=== PATIENT | female | born 1940 | race Caucasian/White ===

== ENCOUNTER → 2021-04-04 01:41 | Outpatient (CLI) | payer MEDICARE, SELFPAY ==
[2021-04-04 17:52] LABS: SARS-CoV-2 RNA PCR Positive
== END ==
PROVIDERS: PCP Family Medicine Adolescent Medicine; Visit Provider Family Medicine Adolescent Medicine
DX: U07.1 COVID-19 (principal)
CPT/HCPCS: C9803; U0003; U0005

== ENCOUNTER → 2021-04-20 12:39 | Outpatient (CLI) | payer MEDICARE, SELFPAY ==
--- NOTE | ~2021-04-20 | XR_ITS ---
EXAMINATION: XR chest 2V DATE: 04/20/2021 12:51 INDICATION: Cough. Chest pain. TECHNIQUE: Frontal and lateral views of the chest were obtained. COMPARISON: Chest 2 views 04/12/2011 FINDINGS: There are airspace opacities in the mid and lower lung zones with a peripheral predominance . Right-sided pleural thickening versus small loculated pleural effusion is noted. No pneumothorax. C ardiomegaly is noted. Surgical clips in the right upper quadrant are likely from cholecystectomy. IMPRESSION: 1. Airspace opacities in the mid and lower lung zones with a peripheral predominance, consistent with atelectasis/scarring versus pneumonia. 2. Right-sided pleural thickening versus small loculated pleural effusion. Consider chest CT with int ravenous contrast. 3. Cardiomegaly. Reviewed, dictated and finalized at location A. IMPRESSION: 1. Airspace opacities in the mid and lower lung zones with a peripheral predomi nance, consistent with atelectasis/scarring versus pneumonia. 2. Right-sided pleural thickening versus small loculated pleural effusion. Cons ider chest CT with intravenous contrast. 3. Cardiomegaly.
== END ==
PROVIDERS: PCP Family Medicine Adolescent Medicine; Visit Provider Family Medicine Adolescent Medicine
DX: R05 Cough (principal); R07.9 Chest pain, unspecified; I51.7 Cardiomegaly; R91.8 Other nonspecific abnormal finding of lung field
CPT/HCPCS: 71046

== ENCOUNTER 2021-05-09 14:24 | Emergency (ER) | payer MEDICARE, SELFPAY ==
--- NOTE | ~2021-05-09 | XR_ITS ---
XR hand LT min 3V DATE: 05/09/2021 14:34 INDICATION: Left hand injury TECHNIQUE: 3 views COMPARISON: None FINDINGS: Diffuse osteopenia. There is polyarticular osteoarthritis, involving first carpometacarpal and interphalangeal joints elier earlene, especially the interphalangeal joint of the first digit. No erosive change or chondrocalcinos is. No fracture or dislocation, periosteal reaction or bone destruction is detected. IMPRESSION: Polyarticular osteoarthritis Osteopenia Reviewed, dictated and finalized at location A.
--- NOTE | 2021-05-09 14:33 | ED.UPPEXIN ---
HPI - Extremity Injury (Upper) General Chief Complaint: Extremity Injury, Upper Stated Complaint: lt hand injury Time Seen by Provider: 05/09/21 14:33 Source: patient and RN notes reviewed History of Present Illness HPI narrative: Patient is a 80-year-old female who presents the urgent care with complaints of left hand pain. Patient states that she fell over a tree stump on Tuesday and caught herself with her left hand. Patient states that the swelling has subsided but she is unable to fully move the last 3 digits without severe pain. Patient states that she is ice the hand, elevated and rested. No other acute complaints or injuries. No acute distress noted. Patient aware of the plan of care. Some parts of this dictation were generated by voice recognition software and may contain typographical and/or grammatical inaccuracies. Related Data Home Medications Medication Instructions Recorded Confirmed albuterol sulfate INHALATION 05/09/21 atorvastatin 05/09/21 beclomethasone dipropionate [Qvar INHALATION 05/09/21 RediHaler] benzonatate mg PO 05/09/21 Allergies Allergy/AdvReac Type Severity Reaction Status Date / Time No Known Allergies Allergy Verified 05/09/21 14:41 Review of Systems Review of Systems: CONSTITUTIONAL: Denies fever, chills, or sweats. EYES: Denies visual changes, redness, or discharge. ENT: Denies rhinorrhea, congestion, sore throat, or otalgia. CARDIOVASCULAR: Denies chest pain, palpitations, or edema. RESPIRATORY: Denies cough or dyspnea. GASTROINTESTINAL: Denies abdominal pain, nausea, vomiting, or diarrhea. GENITOURINARY: Denies dysuria or hematuria. SKIN: Denies rash or itching. MUSCULOSKELETAL: Reports of left hand pain and bruising NEUROLOGIC: Denies headache, numbness, or weakness. All other systems reviewed are negative, except as documented in HPI. PMFSH Social History Social History Alcohol intake: current Comments At the time of my signature, I reviewed and agree with the nursing past medical, surgical, social, and family history. There is no relevant family history pertinent to the patient complaint. Exam Narrative: GENERAL: This is a well-nourished, well-developed patient, in no apparent distress. HEAD: normocephalic, atraumatic. EYES: PERRL. Sclera clear/white. Vision is grossly intact. EARS: External ears normal NOSE: External nose normal with no obvious nasal discharge, nares without redness, no rhinorrhea. THROAT: Mucous membranes moist NECK: Neck supple CARDIOVASCULAR: Regular rate and rhythm RESPIRATORY: Clear to auscultation. Breath sounds equal bilaterally. No wheezes, rales, or rhonchi. SKIN: warm, intact with no suspicious lesions or rash, good texture and turgor. NEURO: awake, alert, and oriented to person, place and time. There were no obvious focal neurologic abnormalities. EXTREMITIES: Mild ecchymosis noted to the ulnar aspect of the left hand with mild to moderate swelling to the palmar aspect just distal from the third and fifth digits. Positive strong left radial pulse with capillary refill less than 2 seconds. Range of motion within normal limits with exacerbated pain on making a fist Course Vital Signs Vital signs: Vital Signs Temperature 99.2 F 05/09/21 14:42 Pulse Rate 98 05/09/21 14:42 Respiratory Rate 20 05/09/21 14:42 Blood Pressure 152/80 H 05/09/21 14:42 Pulse Oximetry 96 05/09/21 14:42 Temperature 99.2 F 05/09/21 14:42 Pulse Rate 98 05/09/21 14:42 Respiratory Rate 20 05/09/21 14:42 Blood Pressure 152/80 H 05/09/21 14:42 Pulse Oximetry 96 05/09/21 14:42 Reviewed-patient is informed that they may have pre-hypertension or hypertension based on a blood pressure reading in the department. I recommend the patient call the primary care provider listed on their discharge instructions or a physician of their choice this week to arrange follow-up for further evaluation of possible pre-hypertension or hyperten
[2021-05-09 14:42] VITALS: BP 152/80; PULSE 98; RESP 20; TEMP 37.3; O2SAT 96
== END 2021-05-09 15:28 | disposition home or self-care (01) ==
PROVIDERS: Emergency Provider Nurse Practitioner Family; PCP Family Medicine Adolescent Medicine
DX: M19.042 Primary osteoarthritis, left hand (principal); W01.0XXA Fall on same level from slipping, tripping and stumbling without subsequent striking against object, initial encounter
CPT/HCPCS: 73130; 99213; G0463

== ENCOUNTER → 2021-10-08 11:40 | Outpatient (CLI) | payer MEDICARE, SELFPAY ==
--- NOTE | ~2021-10-08 | XR_ITS ---
XR sacroiliac joints min 3V DATE: 10/08/2021 12:09 INDICATION: Low back pain TECHNIQUE: 6 views COMPARISON: None FINDINGS: Severe degenerative disease at L5-S1. Diffuse osteopenia. The sacroiliac joints and pubic symphysis are intact. No erosive change or ankylosis, fracture or dis location at either sacroiliac joint. IMPRESSION: Osteopenia Intact sacroiliac joints Severe degenerative disc disease at L5-S1 Reviewed, dictated and finalized at Location A. Reviewed, dictated and finalized at location B. [employer]
--- NOTE | ~2021-10-08 | XR_ITS ---
XR lumbar spine 2-3V DATE: 10/08/2021 12:09 INDICATION: Low back pain TECHNIQUE: AP, lateral, coned lateral lumbosacral views COMPARISON: None FINDINGS: There is diffuse osteopenia. Probable old mild compression fracture deformity of L1. There is degenerative change at the apophyseal joints at L4-5 and L5-S1 with associated grade 1 anter olisthesis at L4-5. There is severe degenerative disc disease at L5-S1. There is mild degenerative disc disease at L4-5. No fracture or bone destruction. The included lower thoracic and lumbar pedicles are intact. The sacroiliac joints are normal. Surgical clips, right upper quadrant, consistent with cholecystectomy. IMPRESSION: Osteopenia Probable old mild compression fracture deformity of L1 Grade 1 anterolisthesis at L4-5 due to degenerative change at the apophyseal joints; mild degenerativ e disc disease at L4-5. Severe degenerative disease at L5-S1. Reviewed, dictated and finalized at location B. 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 Severe degenerative disease at L5-S1.
== END ==
PROVIDERS: PCP Physician Assistant; Visit Provider Physician Assistant
DX: M85.88 Other specified disorders of bone density and structure, other site (principal); M51.37 Other intervertebral disc degeneration, lumbosacral region
CPT/HCPCS: 72100; 72202

== ENCOUNTER 2022-04-30 19:03 | Emergency (ER) | payer MEDICARE, SELFPAY ==
[2022-04-30] VITALS (7 sets, daily range): BP systolic 118–157; BP diastolic 66–86; PULSE 73; RESP 20; TEMP 36.2; O2SAT 89–100
--- NOTE | ~2022-04-30 | XR_ITS ---
XR chest 1V portable DATE: 05/01/2022 02:29 INDICATION: Fall. TECHNIQUE: Portable upright AP chest on 05/01/2022 at 0222 hours COMPARISON: 04/30/2022 CT chest FINDINGS: Right lateral third and fourth rib displaced rib fractures are noted with slight underlying pneumothorax. Minimal right lung atelectasis. Cardiomegaly. Aortic calcification and mild tortuosity. No pleural effusion. Osteopenia. Degenerative spurring of the thoracic spine. Status post cholecystectomy. IMPRESSION: Right lateral third and fourth displaced rib fractures with very slight underlying pneumo thorax Mild right lung atelectasis Cardiomegaly Reviewed, dictated and finalized at location A. IMPRESSION: Right lateral third and fourth displaced rib fractures with very sl ight underlying pneumothorax Mild right lung atelectasis Cardiomegaly
--- NOTE | ~2022-04-30 | XR_ITS ---
XR chest 2V DATE: 05/01/2022 12:08 INDICATION: Slight right pneumothorax, right rib fractures, right scapular fracture TECHNIQUE: AP and lateral views COMPARISON: 05/01/2022 portable AP chest FINDINGS: Right scapular and third and fourth rib fractures are again noted. No apparent pneumothorax . The lungs appear clear. No pleural effusion or pneumothorax. Cardiac megaly. Aortic calcification and mild tortuosity. Diffuse osteopenia. Dextro scoliosis and degenerative spurring of the thoracic spine. Status post cholecystectomy. IMPRESSION: Right scapular and displaced third and fourth lateral rib fractures No apparent pneumothorax Reviewed, dictated and finalized at location A.
--- NOTE | ~2022-04-30 | XR_ITS ---
EXAMINATION: XR shoulder RT min 2V DATE: 04/30/2022 19:29 INDICATION: Right shoulder pain post fall TECHNIQUE: AP internally and externally rotated, AP oblique externally rotated and transscapular Y vi ews of the right shoulder were obtained. COMPARISON: 12/24/2011 FINDINGS: Fracture extending transversely across the middle and caudal thirds of the right scapular body. The c audal fragment is displaced anteriorly and superiorly. Displaced third and fourth and likely nondispl aced second and fifth lateral right rib fractures. No other fractures identified. No evident pneumoth orax or pleural effusion the right hemithorax. Normal alignment with mild osteoarthritis at the right glenohumeral and acromioclavicular joints. Severe lower cervical and moderate thoracic spondylosis. IMPRESSION: Displaced fracture of the right scapular body. See lateral sided right rib fractures which are displa luis. No evident associated pneumothorax or pleural effusion. Reviewed, dictated and finalized at location A. IMPRESSION: Displaced fracture of the right scapular body. See lateral sided right rib frac tures which are displaced. No evident associated pneumothorax or pleural effusi on.
--- NOTE | ~2022-04-30 | CT_ITS ---
EXAMINATION: CT diagnostic chest wo con DATE: 04/30/2022 20:12 INDICATION: fall . Right shoulder and back pain. TECHNIQUE: Computed tomography (CT) of the chest was performed without intravenous contrast. Addition al 3D reconstructions utilizing coronal maximum intensity projection (MIP) were performed. Automated exposure control and iterative reconstruction technique were employed. The dose-length product was 12 0.44 mGy-cm. COMPARISON: None FINDINGS: Comminuted fracture of the right scapular body. There are also fractures of the lateral right third a nd fourth ribs with one rib width displacement. There is a tiny right pneumothorax. Subpleural curvil inear atelectasis versus scarring at the right upper and bilateral lower lobes. No pneumonia, pulmona ry edema, pleural effusion or left-sided pneumothorax. Cardiomegaly with right atrial enlargement. No pericardial effusion. Thoracic aorta is normal in caliber. No pathologically enlarged abdominal or p elvic lymphadenopathy. Single diverticulum along the proximal descending colon without adjacent from trace stranding to suggest diverticulitis. Visualized upper abdomen is otherwise unremarkable. Severe thoracic spondylosis with chronic mild anterior wedging at T8 and T9 and more prominent chronic L1 c ompression fracture with up to 40% central vertebral body height loss. L2 hemangioma. IMPRESSION: 1. Comminuted fracture of the right scapular body and displaced lateral right third and fourth rib fr actures. 2. Tiny right pneumothorax. 3. Cardiomegaly. Reviewed, dictated and finalized at location A. IMPRESSION: 1. Comminuted fracture of the right scapular body and displaced lateral right t hird and fourth rib fractures. 2. Tiny right pneumothorax. 3. Cardiomegaly.
--- NOTE | 2022-04-30 20:00 | ED.FALL ---
HPI - Fall General Chief Complaint: Fall Stated Complaint: fall Time Seen by Provider: 04/30/22 19:49 Source: RN notes reviewed History of Present Illness HPI Narrative: Patient presents emergency department from home for right-sided upper back pain and shoulder pain. Patient states that this afternoon she was sweeping her porch when she tripped backwards over her cat statue landing on her right upper back and shoulder she states she has had severe pain area since that time with pain with any movement she states she fell approximately down 1 step on it happened she denies striking her head or loss of consciousness she denies any headaches neck pain chest pain shortness of breath abdominal pain numbness or tingling in the extremities or any other symptoms. States she has not take anything for the pain Related Data Home Medications Medication Instructions Recorded Confirmed benzonatate 200 mg capsule mg PO 05/09/21 03/04/22 sulindac 200 mg tablet 200 mg PO BID 03/04/22 03/04/22 Allergies Allergy/AdvReac Type Severity Reaction Status Date / Time No Known Allergies Allergy Verified 04/30/22 19:42 Review of Systems Review of Systems: Gen.: Denies fevers or chills ENT: Denies facial pain Respiratory: Denies shortness of breath or cough CV: Denies chest pain or palpitations GI: Denies abdominal pain nausea, emesis or diarrhea Musculoskeletal: See HPI Neuro: Denies numbness, tingling, weakness or focal weakness Skin: Denies rash Except as documented, all other systems reviewed and negative [facility] Past Medical History Medical History GERD (gastroesophageal reflux disease) Moderate persistent asthma Pure hypercholesterolemia, unspecified Surgical History Surgical History History of cataract surgery History of cholecystectomy 1985 History of hysterectomy with bilateral oophorectomy 2018 Family History Family History Mother Depression Heart disease Grandparent Diabetes mellitus Father Heart disease Other Asthma Social History Social History Smoking status: Former smoker Tobacco type: cigarettes Smoking end date: 08/22/79 Alcohol intake: current Drinks per week: 4 Substance use: never Substance use type: does not use Gender identity (if verbalized by the patient): Female Sexual Orientation (if Verbalized by the Patient): Straight or Heterosexual Spiritual care concerns: No Agree to blood products: Yes Exam Narrative: APPEARANCE: Well appearing, no apparent distress, well-nourished. HEENT: normocephalic atraumtaic. No facial tenderness EYES: PERRL NECK: Supple. No midline tenderness to palpation. Full range of motion without pain RESPIRATORY: No respiratory distress. Clear to auscultation bilaterally CARDIOVASCULAR: Regular rate and rhythm without murmurs rubs or gallops. ABDOMINAL: Soft, nontender, nondistended, no rebound or guarding MUSCULOSKELETAl: Moves all extremities. No tenderness to palpation of right upper and bilateral lower extremities. No clubbing cyanosis or edema tender to palpation diffusely over the right shoulder with pain with any movement of the right shoulder as well as mild tenderness to the right posterior elbow no swelling or ecchymosis no tenderness of the right wrist radial pulse 2+ neurovascular intact, Back: No midline thoracic or lumbar tenderness to palpation tender palpation over the right upper lateral back no swelling or ecchymosis NEURO: Awake and alert ?3. Follows commands. Speech normal. No focal deficits. SKIN:: Warm, dry. Normal Color Course Course Emergency Course: Discussed with patient family results of work-up discussed need for transfer the patient's spouse is currently [facility] and she is requesting transfer to
[2022-04-30] MEDS: ACETAMINOPHEN 500 MG TABLET 1000 MG PO (20:18)
[2022-04-30] MEDS: MORPHINE SULFATE (*CRX) 2 MG/ML INJ 1 MG IV PUSH (22:07)
[2022-05-01] VITALS (69 sets, daily range): BP systolic 125–155; BP diastolic 64–79; PULSE 75–80; RESP 16–18; O2SAT 90–100
[2022-05-01] MEDS: traMADol HCL (*CRX) 50 MG TABLET PO ×3 (02:16→13:43)
--- NOTE | 2022-05-01 02:56 | PC.NURSE ---
c/o nausea and dry heeving, meds given
[2022-05-01] MEDS: ONDANSETRON INJ 4 MG/2 ML VIAL IV PUSH (02:57)
--- NOTE | 2022-05-01 05:15 | PC.NURSE ---
[facility] called for intake at this time. PT update of oxygen administration at earlier time and continued O2 therapy. Spoke with
--- NOTE | 2022-05-01 07:10 | PC.NURSE ---
Report given to CHRIS Kirk.
--- NOTE | 2022-05-01 11:16 | PC.NURSE ---
1100 Assumed pt care from CHRIS Kirk
== END 2022-05-01 14:30 | disposition home or self-care (01) ==
PROVIDERS: Emergency Provider Emergency Medicine; PCP Physician Assistant
DX: S42.111A Displaced fracture of body of scapula, right shoulder, initial encounter for closed fracture (principal); S22.41XA Multiple fractures of ribs, right side, initial encounter for closed fracture; S27.0XXA Traumatic pneumothorax, initial encounter; W01.0XXA Fall on same level from slipping, tripping and stumbling without subsequent striking against object, initial encounter; J45.40 Moderate persistent asthma, uncomplicated; I51.7 Cardiomegaly; K21.9 Gastro-esophageal reflux disease without esophagitis; E78.00 Pure hypercholesterolemia, unspecified; Z87.891 Personal history of nicotine dependence; Z79.51 Long term (current) use of inhaled steroids
CPT/HCPCS: 71045; 71046; 71250; 73030; 96374; 96375; 99284; A4565; A9270; J2270; J2405

== ENCOUNTER → 2023-04-29 13:39 | Outpatient (CLI) | payer MEDICARE, SELFPAY ==
--- NOTE | ~2023-04-29 | XR_ITS ---
EXAMINATION: XR foot LT 2V INDICATION: Left foot pain TECHNIQUE: Two views of the left foot are obtained. COMPARISON: 09/30/2015 FINDINGS: Bone alignment is normal. There is no fracture. There is moderate severe osteoarthritis at the tarsometatarsal joints. There is moderate osteoarthritis of the metatarsophalangeal joint and mul tiple interphalangeal joints. No fracture is identified. There is a plantar calcaneal enthesophyte. T he soft tissues are unremarkable. IMPRESSION: 1. Polyarticular osteoarthritis, worst at the tarsometatarsal joints. Reviewed, dictated and finalized at location B.
== END ==
PROVIDERS: PCP Family Medicine Adolescent Medicine; Visit Provider Family Medicine Adolescent Medicine
DX: M19.072 Primary osteoarthritis, left ankle and foot (principal)
CPT/HCPCS: 73620

== ENCOUNTER 2024-01-24 13:42 | Outpatient (CLI) | payer MEDICARE, SELFPAY ==
--- NOTE | ~2024-01-24 | DEXA_ITS ---
Bone Density Report Name: ISATU MARTIN Age: 83 Sex: Female Ethnicity: White Date of : 1940 Indication: postmenopausal; screening for osteoporosis; height loss; history of glucocorticoids; asthma or emphysema; hysterectomy; Referring Provider: ADRIA WAYNE Study: Bone densitometry was performed. Exam Date: January 24, 2024 Accession number: [id number] Bone Density: Region BMD T-score Z-score Classification AP Spine(L1-L4) 0.941 -1.0 1.8 Normal Femoral Neck (Left) 0.506 -3.1 -0.7 Osteoporosis Total Hip (Left) 0.773 -1.4 0.8 Osteopenia Femoral Neck (Right) 0.530 -2.9 -0.5 Osteoporosis Total Hip (Right) 0.783 -1.3 0.9 Osteopenia Total Hip Mean 0.778 -1.4 0.9 Osteopenia World Health Organization criteria for BMD impression classify patients as: Normal (T-score at or above -1.0), Osteopenia (T-score between -1.0 and -2.5), or Osteoporosis (T-score at or below -2.5). 10-year Fracture Risk: FRAX not reported because: Some T-score for Spine Total or Hip Total or Femoral Neck at or below -2.5 Treated for osteoporosis Clinical Information Provided by Patient: Has taken Glucocorticoids Is being treated for osteoporosis Has the following medical conditions: Asthma or Emphysema, Hysterectomy Patient maximum height was 63.0 Menopause Age: 46 Drinks caffeinated beverages Onset of menses at age 14 Number of children 4 Impression: The patient has osteoporosis, based on the Left Femoral Neck T-score. The patient has risk factors, including: history of glucocorticoid therapy. Discussion: It is important to ask patients whether they are taking their medications and to encourage continued and appropriate compliance with their osteoporosis therapies to reduce fracture risk. It is also important to review their risk factors and encourage appropriate calcium and vitamin D intakes, exercise, fall prevention and other lifestyle measures. Follow-Up: Consider a repeat BMD and Vertebral Fracture Assessment (VFA) exam in 2 years or sooner if medically necessary, to reassess this patient's status. Reported by: CANDIDO on 01/24/2024 2:11:00 PM. Reviewed, dictated and finalized at location ABailey MATA
== END 2024-01-24 13:43 | disposition home or self-care (01) ==
PROVIDERS: PCP Family Medicine Adolescent Medicine; Visit Provider Nurse Practitioner Family
DX: M81.0 Age-related osteoporosis without current pathological fracture (principal); Z78.0 Asymptomatic menopausal state; Z13.820 Encounter for screening for osteoporosis
CPT/HCPCS: 77080

== ENCOUNTER 2024-11-20 09:59 | Outpatient (CLI) | payer MEDICARE, SELFPAY ==
--- OUTSIDE RECORDS SUMMARY | 2024-11-20 10:57 | XMS_ITS | Clinical Summary ---
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 Name Role Phone Unavailable Primary Care Provider Unavailabl e Social History Tobacco Use Types Packs/Day Years Used Date Smoking Tobacco: Never Assessed Comments Unknown Sex and Gender Information Value Date Recorded Sex Assigned at Not on file Legal Sex Female 8:31 PM CDT Gender Identity Not on file Sexual Orientation Not on file Plan of Treatment Health Maintenance Due Date Last Done Comments DTaP, Tdap and Td Vaccines ( 1 - Tdap) 1960 Zoster Vaccines (1 of 2) 10/29/1991 Dexa Scan (General) 2006 Pneumococcal Vaccine: 65+ Ye ars (1 of 1 - PCV) 2006 RSV Immunization or 60+ Years (1 - 1-dose 75+ series) 2016 COVID-19 Vaccine (2023-2 5 season) 2024 Influenza Adult (#1) 2024 Meningococcal B Vaccine Aged Out No l onger eligible based on patient's age to complete this topic Meningococcal Vaccine Aged Out No david beka eligible based on patient's age to complete this topic RSV Immunizations Under 20 Months Aged Out No longer eligible based on patient's age to complete this topic
--- NOTE | 2024-11-20 11:30 | NEURO_ITS ---
Impression: # Complains of numbness of right lower extremity. Non-diabetic. ? # Normal motor and sensory Nerve Conduction Study. ? # Needle/EMG exam mildly neurogenic in right EDB. ? # Clinical correlation recommended. Higher involvement needs to be ruled out. Nerve Conduction Studies Anti Sensory Summary Table ?Stim Site NR Peak (ms) P-T Amp (?V) Site1 Site2 Delta-P (ms) Dist (cm) Price (m/s) Right Sup Fibular Anti Sensory (Ant Lat Mall) 14 cm ? 3.6 14.7 14 cm Ant Lat Mall 3.6 16.0 44 Right Sural Anti Sensory (Lat Mall) Calf ? 3.6 13.1 Calf Lat Mall 3.6 16.0 44 Motor Summary Table ?Stim Site NR Onset (ms) O-P Amp (mV) Site1 Site2 Delta-0 (ms) Dist (cm) Price (m/s) Right Peroneal Motor (Vastus Med) Ankle ? 3.8 3.2 Popit Ankle 7.5 38.0 51 Popit ? 11.3 3.6 Right Tibial Motor (Abd Davidson Brev) Ankle ? 4.0 4.5 Knee Ankle 7.5 37.0 49 Knee ? 11.5 4.1 F Wave Studies ?NR F-Lat (ms) L-R F-Lat (ms) Right Peroneal (Mrkrs) (EDB) ? 46.65 Right Tibial (Mrkrs) (Abd Hallucis) ? 47.42 EMG ?Side Muscle Nerve Root Ins Act Fibs Amp Dur Recrt Comment Right AntTibialis Dp Br Fibular L4-5 Nml Nml Nml Nml Nml Right Gastroc Tibial S1-2 Nml Nml Nml Nml Nml Right Fibularis Long Sup Br Fibular L5-S1 Nml Nml Nml Nml Nml Right Flex Dig Long Tibial L5-S2 Nml Nml Nml Nml Nml Right Ext Dig Brev Dp Br Fibular L5, S1 Nml Nml ?Incr >12ms +1 Right QuadratusFem QuadFemoris L4-5, S1 Nml Nml Nml Nml Nml MTDD
== END 2024-11-20 10:00 | disposition home or self-care (01) ==
PROVIDERS: PCP Family Medicine Adolescent Medicine; Visit Provider Family Medicine Adolescent Medicine
DX: G57.11 Meralgia paresthetica, right lower limb (principal)
CPT/HCPCS: 95886; 95908; 95910